=== PATIENT | female | born 1945 | race Caucasian/White ===

== ENCOUNTER 2020-07-30 10:30 | Outpatient (RCR) | payer MEDICARE, OTHER ==
[2020-05-03 16:50] VITALS: BP 141/81
== END 2020-08-03 | disposition home or self-care (01) ==
LOC: PT
DX: M54.12 Radiculopathy, cervical region (principal)

== ENCOUNTER 2020-08-05 08:58 | Outpatient (RCR) | payer MEDICARE, OTHER ==
[2020-05-03 16:50] VITALS: BP 141/81
== END 2020-11-03 | disposition home or self-care (01) ==
LOC: PT
DX: M54.2 Cervicalgia (principal)

== ENCOUNTER → 2020-11-17 | Outpatient (CLI) | payer MEDICARE, OTHER ==
[2020-05-03 16:50] VITALS: BP 141/81
== END ==
LOC: LAB 09:49
DX: Z01.818 Encounter for other preprocedural examination (principal); Z20.822 Contact with and (suspected) exposure to COVID-19; G56.00 Carpal tunnel syndrome, unspecified upper limb

== ENCOUNTER → 2022-09-07 | Outpatient (CLI) | payer MEDICARE, OTHER ==
[2022-09-07 15:04] LABS: BASO # 0.04 K/mm3 (0.02-0.10); EOS # 0.54 K/mm3 (0.04-0.40); EOS % 6.6 % (1.0-5.0); HEMATOCRIT 30.2 % (37.0-47.0); HEMOGLOBIN 9.4 g/dL (12.5-16.0); LYMPH# 1.79 K/mm3 (1.50-4.00); MEAN CELL VOLUME 90 fl (78-100); MEAN CORPUSCULAR HEMOGLOBIN 28 pg (27-31); MEAN CORPUSCULAR HGB CONC 31 g/dL (33-37); MEAN PLATELET VOLUME 9.1 fl (7.4-10.4); MONO # 1.04 K/mm3 (0.20-0.80); NEU # 4.77 K/mm3 (1.40-6.50); PLATELET COUNT 464 K/mm3 (130-400); RED BLOOD COUNT 3.35 M/mm3 (4.10-5.30); RED CELL DISTRIBUTION WIDTH 13.7 % (11.5-14.5); WHITE BLOOD COUNT 8.2 K/mm3 (4.8-10.8)
[2022-09-07 15:17] LABS: ALBUMIN 3.5 g/dL (3.4-4.8)
[2022-09-07 15:18] LABS: POTASSIUM 4.4 mmol/L (3.5-5.1)
[2022-09-07 15:19] LABS: CALCIUM 9.4 mg/dL (8.3-10.5)
[2022-09-07 15:20] LABS: TOTAL PROTEIN 6.2 g/dL (6.2-8.1)
[2022-09-07 15:22] LABS: TOTAL BILIRUBIN 0.3 mg/dL (0.2-1.2)
== END ==
LOC: LAB 14:46
PROVIDERS: Internal Medicine Infectious Disease
DX: T84.53XD Infection and inflammatory reaction due to internal right knee prosthesis, subsequent encounter (principal)

== ENCOUNTER → 2024-04-24 | Outpatient (CLI) | payer MEDICARE | LOC: RAD 09:15 | DX: M25.561 Pain in right knee (principal); Z96.653 Presence of artificial knee joint, bilateral ==

== ENCOUNTER → 2024-11-15 | Outpatient (CLI) | payer MEDICARE | LOC: RAD 09:41 | DX: M67.813 Other specified disorders of tendon, right shoulder (principal); S46.912A Strain of unspecified muscle, fascia and tendon at shoulder and upper arm level, left arm, initial encounter; S46.111A Strain of muscle, fascia and tendon of long head of biceps, right arm, initial encounter; M17.11 Unilateral primary osteoarthritis, right knee; X58.XXXA Exposure to other specified factors, initial encounter ==